=== PATIENT | female | born 1950 | race Caucasian/White ===

== ENCOUNTER → 2017-11-04 | Outpatient (CLI) | payer OTHER ==
[~2017-11-04] MED LIST: BUSP5TAB59 PO; CALC500C70 PO; CLMTP5 PO; LEVO50TA PO; MULT-506 PO; PRD/1 PO; PROP20TA67 PO; PRT/20 PO; TYLOTC500 PO; WARF2TAB PO
--- NOTE | 2017-11-04 14:29 | DIAGNOSTIC IMAGING REPORT ---
PELVIS, RIGHT HIP 1 VIEW CLINICAL HISTORY: S/P RIGHT TOTAL HIP ARTHROPLASTY COMPARISON STUDY: Pelvis and right hip 06/08/2016. FINDINGS: There is again noted a right total hip arthroplasty. The hardware appears intact. No abnormal periprosthetic lucency. No fracture or dislocation within the pelvis or hips. Mild degenerative changes within the bilateral sacroiliac joints, unchanged. The sacrum appears intact. Mild osteoarthritis within the left hip. There is also moderate degenerative changes within the symphysis pubis, unchanged. IMPRESSION: 1. Right total arthroplasty. No evidence for hardware complication. 2. Osteoarthritis within the bilateral sacroiliac joints, left hip, and symphysis pubis remains unchanged. Electronically signed by: José Fulton M.D. 11/04/2017 2:28 PM Dictated Date/Time: 11/04/2017 2:26 PM
== END | disposition home or self-care (01) ==
LOC: C.RDSM 11:24
PROVIDERS: ATTEND Physician Assistant
DX: Z96.641 Presence of right artificial hip joint (principal)